=== PATIENT | male | born 1945 | race African-American/Black ===

== ENCOUNTER 2017-04-09 12:07 | Inpatient (IN) | payer MEDICARE ==
[~2017-04-09] VITALS: Ht 167.6 cm; Wt 63.5 kg
[~2017-04-09 12:07] MED LIST: AMLO10TA2 PO; ASPI-482 PO; CHLO25TA PO; DIPH50CA PO; FOLI1TAB16 PO; HYDR25CA75 PO; IBUP400T18 PO; LEVE750T8 PO; MAGN400T22 PO; MULT-245 PO; POTA20TA12 PO; SERT100T PO; THIA100T8 PO; TRAZ50TA15 PO; [UNRECOGNIZED DRUG - CODE] PO; [UNRECOGNIZED DRUG - CODE] PO
[2017-04-09] MEDS ORDERED: IV NORMAL SALINE 1,000ML 1,000 ML IV SCH (12:15)
[2017-04-09] MEDS ORDERED: ONDANSETRON PF 4 MG/2 ML VIAL. IV ONE (12:15)
[2017-04-09] MEDS ORDERED: 0.9 % SODIUM CHLORIDE 10 ML DISP.SYRIN. IV PRN (12:15)
--- NOTE | 2017-04-09 12:36 | RAD ---
Portable chest, 04/09/2017: History: Weakness Comparison is made to a study from 10/24/2013. There is mild unchanged elevation of the right hemidiaphragm. The heart size and pulmonary vascularity are normal. No pulmonary infiltrates are seen. There is no evidence of pleural fluid. IMPRESSION: No acute cardiopulmonary abnormality is detected.
--- NOTE | 2017-04-09 12:50 | EKG ---
[address] [address] Test Date: 2017-04-09 Test Time: 12:16:37 Pat Name: PARTH YOUNG Department: Room: Gender: M [employer] Supervisor: TAISHA : 1945 Requested By: MALI AGUILAR Order Number: [id number] Reading MD: Measurements Intervals [address] Rate: 95 P: -90 DE: 164 QRS: 10 QRSD: 80 T: 29 QT: 352 QTc: 446 Interpretive Statements SINUS RHYTHM T ABNORMALITY IN ANTERIOR LEADS ABNORMAL ECG RI6.01 Unconfirmed report No previous ECG available for comparison
[2017-04-09 12:58] LABS: BASO % 0 % (0-3); EOS % 1 % (0-3); HEMATOCRIT 38.1 % (39.0-53.0); HEMOGLOBIN 13.1 g/dL (13.0-17.5); LYMPH # 0.7 x10^3/uL (1.0-4.8); LYMPH % 13 % (24-48); MEAN CORPUSCULAR HEMOGLOBIN 35 pg (25-35); MEAN CORPUSCULAR HGB CONC 35 g/dL (31-37); MEAN CORPUSCULAR VOLUME 101 fL (79-100); MONO # 0.6 x10^3/uL (0.0-1.1); MONO % 12 % (0-9); NEUT # 3.9 x10^3uL (1.8-7.7); NEUT % 74 % (31-73); PLATELET COUNT 99 x10^3/uL (140-400); RED BLOOD COUNT 3.76 x10^6/uL (4.30-5.70); RED CELL DISTRIBUTION WIDTH 13.6 % (11.5-14.5); WHITE BLOOD COUNT 5.2 x10^3/uL (4.0-11.0)
[2017-04-09 13:17] LABS: ALBUMIN 3.8 g/dL (3.4-5.0); DIRECT BILIRUBIN 0.9 mg/dL (0.0-0.2); MAGNESIUM 0.9 mg/dL (1.8-2.4); TOTAL BILIRUBIN 1.6 mg/dL (0.2-1.0); TOTAL PROTEIN 8.2 g/dL (6.4-8.2)
[2017-04-09 13:47] LABS: CALCIUM 8.6 mg/dL (8.5-10.1); CREATININE 1.7 mg/dL (0.7-1.3)
[2017-04-09] MEDS ORDERED: LORazepam 2 MG/ML VIAL IV ONE (14:15)
[2017-04-09] MEDS ORDERED: ONDANSETRON PF 4 MG/2 ML VIAL. IV PRN (14:15)
[2017-04-09] MEDS ORDERED: POTASSIUM CHLORIDE 20 MEQ TABLET.ER. PO ONE (14:30)
--- NOTE | 2017-04-09 15:02 | PHYS DOC ---
Past History Past Medical History: Hypertension, Seizure Additional Past Medical Histor: alcohol abuse Past Surgical History: No Surgical History Smoking: Non-smoker Alcohol Use: Heavy Drug Use: None Adult General Chief Complaint Chief Complaint: NAUSEA/VOMITING HPI HPI 71-year-old male patient brought in by EMS because of vomiting and generalized weakness. Patient states he drinks gallons of vodka every day but for the last 4 days he was not able to drink alcohol because of frequent episodes of nausea and vomiting. Patient states he has had at least 10 episodes of vomiting every day and had epigastric pain during episodes of vomiting as a aching pain without radiation. Patient rated his pain for over 10 and denies any pain at arrival to ER. Patient denies fever and chills, focal neuro deficit, pain, shortness of breath, diarrhea and urinary symptom, history of the same problem. Patient states he was week that was not able to stand up and walk since this morning and his caregiver called 911. Review of Systems Review of Systems Constitutional: Denies fever or chills, reports generalized weakness [] Eyes: Denies change in visual acuity, redness, or eye pain [] HENT: Denies nasal congestion or sore throat [] Respiratory: Denies cough or shortness of breath [] Cardiovascular: No additional information not addressed in HPI [] GI: Denies bloody stools or diarrhea , reports nausea and vomiting and abdominal pain[] : Denies dysuria or hematuria [] Musculoskeletal: Denies back pain or joint pain [] Integument: Denies rash or skin lesions [] Neurologic: Denies headache, focal weakness or sensory changes [] Endocrine: Denies polyuria or polydipsia [] All other systems were reviewed and found to be within normal limits, except as documented in this note. Current Medications Current Medications Current Medications Medications (Trade) Dose Ordered Sig/Angel Start Time Stop Time Status Last Admin Dose Admin Ceftriaxone Sodium 1 gm/ Sodium Chloride 50 ml @ 100 mls/hr 1X ONCE 04/09/17 14:15 04/09/17 14:44 DC Lorazepam (Ativan) 0.5 mg 1X ONCE 04/09/17 14:15 04/09/17 14:16 DC Ondansetron HCl (Zofran) 4 mg PRN Q4HRS PRN 04/09/17 14:15 04/10/17 14:14 Potassium Chloride (Klor-Con) 40 meq 1X ONCE 04/09/17 14:30 04/09/17 14:31 DC Sodium Chloride 1,000 ml @ 150 mls/hr Q6H40M 04/09/17 14:15 04/10/17 14:14 Sodium Chloride (Normal Saline Flush) 10 ml QSHIFT PRN 04/09/17 12:15 Allergies Allergies Allergies Coded Allergies Type Severity Reaction Last Updated Verified lisinopril Allergy Mild 04/09/17 Yes Physical Exam Physical Exam Constitutional: Mild distress, non-toxic appearance no agitation or shaking. [] HENT: Normocephalic, atraumatic, bilateral external ears normal, oropharynx dry , no oral exudates, nose normal. [] Eyes: PERRLA, EOMI, conjunctiva normal, no discharge. [] Neck: Normal range of motion, no tenderness, supple, no stridor. [] Cardiovascular:Heart rate regular rhythm, no murmur [] Lungs & Thorax: Bilateral breath sounds clear to auscultation [] Abdomen: Bowel sounds normal, soft, no tenderness, no masses, no pulsatile masses. [] Skin: Warm, dry, no erythema, no rash. [] Back: No tenderness, no CVA tenderness. [] Extremities: No tenderness, no cyanosis, no clubbing, ROM intact, no edema. [] Neurologic: Alert and oriented X 3, normal motor function, normal sensory function, no focal deficits noted. [] Psychologic: Affect normal, judgement normal, mood normal. [] Current Patient Data Vital Signs Vital Signs Date Time Temp Pulse Resp B/P (MAP) Pulse Ox O2 Delivery O2 Flow Rate FiO2 04/09/17 13:19 70 18 126/75 (92) 99 Room Air 04/09/17 12:15 98.2 Lab Results Laboratory Tests Test 04/09/17 12:08 04/09/17 12:42 Sodium Level 138 mmol/L (136-145) Potassium Level 3.0 mmol/L (3.5-5.1) L Chloride Level 98 mmol/L (98-107) Carbon Dioxide Level 23 mmol/L (21-32) Anion Gap 17 (6-14) H Blood Urea Nitrogen 30 mg/dL (8-26) H Creatinine 1.7 mg/dL (0.7-1.3) H Estimated GFR (Cockcroft-Gault) 48.0 Glucose Level 171 mg/dL (70-99) H Calcium Level 8.6 mg/dL (8.5-10.1) White Blood Count 5.2 x10^3/uL (4.0-11.0) Red Blood Count 3.76 x10^6/uL (4.30-5.70) L Hemoglobin 13.1 g/dL (13.0-17.5) Hematocrit 38.1 % (39.0-53.0) L Mean Corpuscular Volume 101 fL (79-100) H Mean Corpuscular Hemoglobin 35 pg (25-35) Mean Corpuscular Hemoglobin Concent 35 g/dL (31-37) Red Cell Distribution Width 13.6 % (11.5-14.5) Platelet Count 99 x10^3/uL (140-400) L Neutrophils (%) (Auto) 74 % (31-73) H Lymphocytes (%) (Auto) 13 % (24-48) L Monocytes (%) (Auto) 12 % (0-9) H Eosinophils (%) (Auto) 1 % (0-3) Basophils (%) (Auto) 0 % (0-3) Neutrophils # (Auto) 3.9 x10^3uL (1.8-7.7) Lymphocytes # (Auto) 0.7 x10^3/uL (1.0-4.8) L Monocytes # (Auto) 0.6 x10^3/uL (0.0-1.1) Eosinophils # (Auto) 0.0 x10^3/uL (0.0-0.7) Basophils # (Auto) 0.0 x10^3/uL (0.0-0.2) Prothrombin Time 11.3 SEC (9.4-11.4) Prothrombin Time INR 1.1 (0.9-1.1) PTT 24 SEC (23-33) Lactic Acid Level 2.4 mmol/L (0.4-2.0) H Magnesium Level 0.9 mg/dL (1.8-2.4) L Total Bilirubin 1.6 mg/dL (0.2-1.0) H Direct Bilirubin 0.9 mg/dL (0.0-0.2) H Aspartate Amino Transferase (AST) 162 U/L (15-37) H Alanine Aminotransferase (ALT) 75 U/L (16-63) H Alkaline Phosphatase 92 U/L (46-116) Creatine Kinase 178 U/L (39-308) Troponin I Quantitative < 0.017 ng/mL (0-0.055) Total Protein 8.2 g/dL (6.4-8.2) Albumin 3.8 g/dL (3.4-5.0) Lipase 2595 U/L (73-393) H Ethyl Alcohol Level < 10 mg/dL (0-10) EKG EKG EKG interpreted by me. EKG at 1216 showed normal sinus rhythm at rate of 95, poor R-wave progress and T wave abnormality in anterior leads without acute ST and T wave abnormality[] Radiology/Procedures Radiology/Procedures [] Course & Med Decision Making Course & Med Decision Making Pertinent Labs and Imaging studies reviewed. (See chart for details) Evaluation of patient in ER showed 71-year-old male patient brought in by EMS because of nausea and vomiting and generalized weakness. Patient had history of alcohol abuse but did not drinking alcohol for the last 4 days but patient did not have sign of acute alcohol withdrawal at arrival to ER. Patient treated with IV fluid and Zofran as better. Patient denies any abdominal pain but he was in ER. Labs showed acute pancreatitis with elevation of liver function tests. Gallbladder ultrasound and UA is pending. Lactic acid was 2.4 and plan to repeat lactic acid in 4 hours. 1 dose of Rocephin was started. Dr. Lamb was informed at 1355 and agreed with plan of admission. Patient informed about plan of care. Dragon Disclaimer Dragon Disclaimer This electronic medical record was generated, in whole or in part, using a voice recognition dictation system. Departure Departure: Impression: Primary Impression: Acute pancreatitis Additional Impressions: Hypokalemia Dehydration Nausea and vomiting Alcohol withdrawal Cholelithiasis Elevated lactic acid level Renal insufficiency Disposition: 09 ADMITTED INPATIENT (At 1400) Admitting Physician: July Lamb Condition: IMPROVED Critical Care Time Critical care time was [60] minutes exclusive of procedures. Problem Qualifiers MALI AGUILAR MD Apr 09, 2017 15:02
--- NOTE | 2017-04-09 15:07 | RAD ---
Right upper quadrant ultrasound 04/09/2017 Indication: Right upper quadrant pain. Pancreatitis. Abdominal pain vomiting. Comparison study: None available. Discussion: Ultrasound evaluation of the right upper quadrant was performed. Static images are submitted to PACS. Pancreatic duct is top normal in diameter measuring 2 mm. No gross sonographic abnormalities of the pancreas are detected. Visualized portions of aorta and IVC are grossly unremarkable. A combination of sludge and small stones are noted within dependent portion of the gallbladder. The gallbladder wall is non-thickened. Portal venous flow is in the normal direction. The liver is diffusely hyperechoic suggesting fatty infiltration. The liver is top normal in size measuring 17.4 cm longitudinally. No intrahepatic biliary dilatation is seen. A small 1.3 cm cyst is noted in the right liver. The common bile duct is nondilated at 4 mm. The right kidney is normal in appearance measuring 11 cm in length. Impression: 1. Cholelithiasis and sludge in the dependent portion of the gallbladder. 2. Hepatic steatosis. Small hepatic cyst noted.
[2017-04-09] MEDS ORDERED: IV NORMAL SALINE 1,000ML 1,000 ML IV ONE (15:15)
[2017-04-09 15:34] VITALS: BP 137/89
[2017-04-09 15:46] LABS: AMPHETAMINE/METHAMPHETAMINE NEG (NEG); BARBITURATES NEG (NEG); BENZODIAZEPINES NEG (NEG); CANNABINOIDS NEG (NEG); COCAINE NEG (NEG); METHADONE NEG (NEG); OPIATES NEG (NEG); PHENCYCLIDINE NEG (NEG)
[2017-04-09 16:02] LABS: BILIRUBIN,URINE NEG (NEG); CLARITY,URINE HAZY; COLOR,URINE AMBER; GLUCOSE,URINE NEG (NEG)
[2017-04-09 16:04] LABS: BACTERIA,URINE 0 /HPF (0-FEW); HYALINE CASTS, URINE MANY /HPF; SQUAMOUS EPITHELIAL CELL,UR FEW /LPF
[2017-04-09] MEDS ORDERED: CYAN100031 PO (16:30)
[2017-04-09] MEDS ORDERED: CARB15DR3 EACHEYE (16:30)
[2017-04-09] MEDS ORDERED: ASCO500T3 PO (16:30)
[2017-04-09] MEDS ORDERED: LEVE500T6 PO (16:30)
[2017-04-09] MEDS ORDERED: CARV12.52 PO (16:30)
[2017-04-09] MEDS ORDERED: TERA2CAP3 PO (16:30)
[2017-04-09] MEDS: IV NORMAL SALINE 1,000ML 1,000 ML IV SCH ×2 (16:55→20:55)
[2017-04-09] MEDS ORDERED: MAGNESIUM SULFATE 2GM 50 ML IV ONE (17:00)
[2017-04-09] MEDS ORDERED: cefTRIAXone IV Push 1 GM VIAL. IVP ONE (17:00)
[2017-04-09 18:22] VITALS: BP 99/66
[2017-04-09] MEDS ORDERED: LORazepam 2 MG/ML VIAL IV PRN (18:30)
--- NOTE | 2017-04-09 18:57 | HP ---
ADMIT DATE: 04/09/2017 HISTORY OF PRESENT ILLNESS: The patient is a 71-year-old -Monegas[place] patient, a who came to the Emergency Room complaining of recurrent bouts of nausea, vomiting, and generalized weakness. He stated that he drinks about a gallon of vodka every day. For the last 4 days, he was not able to drink alcohol because of frequent episodes of nausea and vomiting. He stated he has at least 10 episodes of vomiting every day, had epigastric pain during the episodes of vomiting as an aching pain without radiation. He rated his pain as 10/10. He denied any fever, chills, or rigors. Denied any shortness of breath. Denied any diarrhea. He was evaluated in the Emergency Room and was found to have deranged liver enzyme and marked elevated serum lipase as well as severe hypokalemia and hypomagnesemia and was admitted for pain management to replenish his potassium and magnesium and to start him on alcohol withdrawal protocol. PAST MEDICAL HISTORY: Significant for hypertension, hepatitis C, vitamin B12 deficiency, seizure disorder. PAST SURGICAL HISTORY: Unremarkable. ALLERGIES: He is allergic to LISINOPRIL. MEDICATIONS: He is currently on following medications: He is on amlodipine 10 mg once a day, ascorbic acid 500 mg once a day, carboxymethylcellulose for Refresh Optive eyedrops 1 drop to both eyes 4 times a day, carvedilol 12.5 mg twice a day, cyanocobalamin 1000 mcg tablet once a day, folic acid 1 mg once a day, levetiracetam 500 mg twice a day, multivitamin 1 tablet once a day, sertraline 100 mg, he takes half a tablet once a day, terazosin 1 mg at bedtime, and thiamine 100 mg daily. FAMILY HISTORY: He has 1 sister and 1 brother who live in [place] and do not keep in touch with him. His father at the age of 62 because of alcoholism. He does not know the cause of of his mother. SOCIAL HISTORY: He is from his over 22 years. He has 2 sons and 1 daughter. He never smoked, but he has been a heavy drinker all of his life. He worked for [employer] and [employer] and has been retired the last few years. He lives in an apartment in the [facility]. REVIEW OF SYSTEMS: The patient denied any blurring of vision, cataract, glaucoma or macular degeneration. Denied any earache, tinnitus or sensorineural deafness. Denied any nosebleeds, stuffy nose or postnasal drip. Denied any sore throat, sore tongue, toothache, hoarseness of voice or difficulty swallowing. Did complain of recurrent bouts of nausea and vomiting, but denied any diarrhea or constipation. Denied any hematemesis, melena or hematochezia. Denied any dysuria, frequency or hematuria. Denied any chest pain, shortness of breath, orthopnea, or paroxysmal nocturnal dyspnea. Denied any cough, phlegm, or hemoptysis. Denied any chills, rigors, or fever. PHYSICAL EXAMINATION: GENERAL: When I examined him, he looked well and was clearly in no apparent respiratory distress, pale, but no jaundice, cyanosis, or thyromegaly. No jugular venous distension. No limb edema. VITAL SIGNS: His heart rate was 76, blood pressure was 137/89, temperature was 98.5, respiratory rate 20, and oxygen saturation was 97%. HEAD, EYES, EARS, NOSE AND THROAT: Showed normocephalic, atraumatic. NECK: Supple. HEART: Showed normal first and second heart sounds with no gallop, rub or murmur. CHEST: Clear to auscultation. No crepitation or rhonchi. ABDOMEN: Distended with some tenderness in the epigastric area. Denied any guarding or rigidity. No organomegaly. Hernial orifices intact. Bowel sounds normal. NEUROLOGIC: He was awake, alert, responding appropriately. Cranial nerves intact. EXTREMITIES: He moves extremities without difficulty, ambulates without assistance or assistive devices. LABORATORY DATA: His lab work showed a white cell count of 5200, hemoglobin 13, hematocrit 38, MCV 101, and platelet count of 99,000. His prothrombin time was 11.3, INR 1.1, aPTT was 24. His chemistry showed a serum sodium of 138, potassium 3, chloride 98, bicarbonate 23, anion gap of 17, BUN 30, creatinine 1.7, estimated GFR was 48 mL per minute. His glucose 171, calcium was 8.6, lactic acid was 2.4, magnesium was very low at 0.9. His total bilirubin was 1.6. His alkaline phosphatase was normal, however, AST and ALT were elevated. His CK was 178. Total protein was 8.2, albumin was 3.8 and serum lipase was high at 2595. ASSESSMENT AND PLAN: In summary, this is a 71-year-old -Monegas[place] male patient, who was admitted with recurrent bouts of nausea, vomiting and epigastric pain, was diagnosed with acute pancreatitis with markedly elevated serum lipase of 2595. He also has marked severe hypokalemia, hypomagnesemia versus acute on chronic kidney injury and hyperglycemia. I will continue with IV fluid, pain medication and banana bag. We will repeat all his lab works tomorrow and decide the further management accordingly. He has had CT scan and abdominal ultrasound, which showed that he has cholelithiasis and sludge in the dependent portion of the gallbladder and hepatic steatosis, but there is no evidence of acute cholecystitis. JIM CADE MD DR: UYEN/farrah JOB#: [id number] / [id number]
[2017-04-09] MEDS: levETIRAcetam 500 MG TABLET PO SCH (20:30)
[2017-04-09] MEDS ORDERED: MVI, ADULT NO.4 WITH VIT K 10 ML, THIAMINE 100 MG, FOLIC ACID 1 MG in IV NORMAL SALINE ... IV SCH ×4 (21:00)
[2017-04-09 23:00] VITALS: BP 143/79
[2017-04-10 03:00] VITALS: BP 132/72
[2017-04-10] MEDS: IV NORMAL SALINE 1,000ML 1,000 ML IV SCH ×2 (03:35→10:15)
[2017-04-10 07:00] VITALS: BP 118/79
[2017-04-10 07:07] LABS: ALBUMIN 3.1 g/dL (3.4-5.0); ALBUMIN/GLOBULIN RATIO 0.8 (1.0-1.7); CALCIUM 7.7 mg/dL (8.5-10.1); GFR 88.6; TOTAL BILIRUBIN 1.1 mg/dL (0.2-1.0)
[2017-04-10 07:12] LABS: HEMOGLOBIN 11.7 g/dL (13.0-17.5); RED BLOOD COUNT 3.34 x10^6/uL (4.30-5.70); RED CELL DISTRIBUTION WIDTH 13.7 % (11.5-14.5); WHITE BLOOD COUNT 5.1 x10^3/uL (4.0-11.0)
[2017-04-10 07:16] LABS: POTASSIUM 2.9 mmol/L (3.5-5.1)
[2017-04-10] MEDS: POTASSIUM CHLORIDE 10MEQ 100 ML IV SCH ×4 (07:38→10:30)
[2017-04-10] MEDS: levETIRAcetam 500 MG TABLET PO SCH ×2 (08:47→20:24)
[2017-04-10 11:46] VITALS: BP 148/93
[2017-04-10] MEDS: chlordiazePOXIDE HCL 25 MG CAPSULE PO PRN (12:56)
[2017-04-10] MEDS ORDERED: chlordiazePOXIDE HCL 25 MG CAPSULE PO PRN (13:00)
[2017-04-10] MEDS ORDERED: cloNIDine HCL 0.1 MG TABLET PO PRN (13:00)
[2017-04-10] MEDS ORDERED: MAGNESIUM SULFATE 2GM 50 ML IV ONE (15:30)
[2017-04-10] MEDS: POLYVINYL ALCOHOL 1.4% OPHTH SOLUTION 15ML BOTTLE. OU SCH ×2 (17:00→20:25)
[2017-04-10 18:41] VITALS: BP 141/80
[2017-04-10 19:21] VITALS: BP 110/67
[2017-04-10] MEDS: POTASSIUM CHLORIDE 20 MEQ TABLET.ER. PO SCH (20:24)
[2017-04-10] MEDS: CARVEDILOL 12.5 MG TABLET PO SCH (20:24)
[2017-04-10] MEDS: MAGNESIUM OXIDE 400 MG TABLET PO SCH (20:25)
[2017-04-10] MEDS: TERAZOSIN 1 MG CAPSULE. PO SCH (20:29)
[2017-04-10 23:13] VITALS: BP 130/78
[2017-04-11 05:08] VITALS: BP 142/88
[2017-04-11 06:30] LABS: HEMATOCRIT 32.8 % (39.0-53.0); HEMOGLOBIN 11.3 g/dL (13.0-17.5); RED BLOOD COUNT 3.22 x10^6/uL (4.30-5.70); RED CELL DISTRIBUTION WIDTH 13.9 % (11.5-14.5); WHITE BLOOD COUNT 4.3 x10^3/uL (4.0-11.0)
[2017-04-11 06:35] LABS: ALBUMIN 2.9 g/dL (3.4-5.0); ALBUMIN/GLOBULIN RATIO 0.8 (1.0-1.7); CALCIUM 7.7 mg/dL (8.5-10.1); CREATININE 0.7 mg/dL (0.7-1.3); GFR 133.8; MAGNESIUM 1.5 mg/dL (1.8-2.4); POTASSIUM 3.1 mmol/L (3.5-5.1); TOTAL PROTEIN 6.7 g/dL (6.4-8.2)
[2017-04-11] MEDS: ASCORBIC ACID 500 MG TABLET PO SCH (08:28)
[2017-04-11] MEDS: POLYVINYL ALCOHOL 1.4% OPHTH SOLUTION 15ML BOTTLE. OU SCH ×4 (08:28→21:13)
[2017-04-11] MEDS: amLODIPine BESYLATE 10 MG TABLET PO SCH (08:28)
[2017-04-11] MEDS: CYANOCOBALAMIN (VITAMIN B-12) 1,000 MCG TABLET. PO SCH (08:28)
[2017-04-11] MEDS: THIAMINE 100 MG TABLET. PO SCH (08:29)
[2017-04-11] MEDS: levETIRAcetam 500 MG TABLET PO SCH ×2 (08:29→21:14)
[2017-04-11] MEDS: MULTIVITAMIN with MINERAL TABLET. PO SCH (08:29)
[2017-04-11] MEDS: SERTRALINE 50 MG TABLET. PO SCH (08:29)
[2017-04-11] MEDS: POTASSIUM CHLORIDE 20 MEQ TABLET.ER. PO SCH ×3 (08:29→21:14)
[2017-04-11] MEDS: MAGNESIUM OXIDE 400 MG TABLET PO SCH ×3 (08:29→21:13)
[2017-04-11] MEDS: CARVEDILOL 12.5 MG TABLET PO SCH ×2 (08:29→21:13)
[2017-04-11] MEDS: FOLIC ACID 1 MG TABLET PO SCH (08:29)
[2017-04-11] MEDS ORDERED: LOPERAMIDE 2 MG CAPSULE PO PRN (09:00)
--- NOTE | 2017-04-11 09:37 | PN ---
DATE: 04/10/2017 SUBJECTIVE: The patient is resting, slightly propped up in bed, in no apparent distress. He has had no further episodes of nausea or vomiting. Denied any abdominal pain. Nursing staff concerned about his blood pressure is high and his potassium was low also this morning at 2.9 for which he was given potassium intravenously and potassium came up to 3.5. His serum lipase came down from . PHYSICAL EXAMINATION: GENERAL: When I examined him this afternoon, he looked well and was clearly in no apparent respiratory distress, pale, but no jaundice, cyanosis, or thyromegaly. No jugular venous distension. No limb edema. VITAL SIGNS: His heart rate was 64, blood pressure was 132/72, temperature was 97.4, respiratory rate 20, and oxygen saturation was 94%. HEAD, EYES, EARS, NOSE AND THROAT: Showed normocephalic, atraumatic. NECK: Supple. HEART: Showed normal first and second heart sounds with no gallop, rub or murmur. CHEST: Clear to auscultation. No crepitation or rhonchi. ABDOMEN: Distended, soft, nontender. No guarding or rigidity. No organomegaly. All hernial orifice intact. Bowel sounds normal. NEUROLOGIC: He was awake, alert, responding appropriately. All cranial nerves intact. EXTREMITIES: He moves extremities without difficulty, ambulates without assistance or assistive devices. His intake was 2750. No output was recorded. LABORATORY DATA: This morning showed a serum sodium 142, potassium 3.5, chloride 106, bicarbonate 22, anion gap of 14, BUN of 18, creatinine 1, estimated GFR was 88, glucose 124, calcium was 7.7, magnesium continued to be low at 1.1. His total bilirubin is 1.1, alkaline phosphatase normal. Total protein 7, albumin 3.1 and lipase was 930. His white cell count was 5100, hemoglobin 11.7, hematocrit 34, MCV 102 and platelet count of 70,000. ASSESSMENT: 1. Acute pancreatitis with markedly elevated serum lipase of 2595. 2. Severe hypokalemia with potassium of 2.9, resolved. Severe hypomagnesemia with serum magnesium 0.9 mg/dL, slightly better, although still below the lower limit of normal. 3. Acute kidney injury. His creatinine came down from 1.7 to 1 and deranged liver enzymes slightly improved. PLAN: Resume all his medication before. Magnesium sulfate 2 grams IV and started magnesium oxide 400 mg 3 times a day. Start clear liquid diet PT/OT. JIM CADE MD DR: UYEN/farrah JOB#: [id number] / [id number]
[2017-04-11 11:11] VITALS: BP 150/87
[2017-04-11] MEDS: chlordiazePOXIDE HCL 25 MG CAPSULE PO PRN (12:52)
[2017-04-11] MEDS ORDERED: MAGNESIUM SULFATE 2GM 50 ML IV ONE ×2 (15:00→16:30)
[2017-04-11] MEDS: POTASSIUM CL 40MEQ IN 0.9%NACL 1,000 ML IV SCH (15:32)
[2017-04-11 16:39] VITALS: BP 125/82
[2017-04-11 19:17] VITALS: BP 123/81
[2017-04-11] MEDS: TERAZOSIN 1 MG CAPSULE. PO SCH (21:13)
[2017-04-11 23:07] VITALS: BP 114/73
[2017-04-12] MEDS: POTASSIUM CL 40MEQ IN 0.9%NACL 1,000 ML IV SCH ×2 (05:57→17:40)
[2017-04-12 06:12] VITALS: BP 136/84
[2017-04-12 08:02] LABS: ALBUMIN 3.1 g/dL (3.4-5.0); ALBUMIN/GLOBULIN RATIO 0.8 (1.0-1.7); CALCIUM 8.5 mg/dL (8.5-10.1); CREATININE 0.6 mg/dL (0.7-1.3); GFR 159.8; MAGNESIUM 1.7 mg/dL (1.8-2.4); POTASSIUM 4.3 mmol/L (3.5-5.1); TOTAL BILIRUBIN 0.8 mg/dL (0.2-1.0)
[2017-04-12] MEDS: POLYVINYL ALCOHOL 1.4% OPHTH SOLUTION 15ML BOTTLE. OU SCH ×3 (09:00→17:00)
[2017-04-12] MEDS: POTASSIUM CHLORIDE 20 MEQ TABLET.ER. PO SCH ×2 (09:17→14:48)
[2017-04-12] MEDS: THIAMINE 100 MG TABLET. PO SCH (09:17)
[2017-04-12] MEDS: CYANOCOBALAMIN (VITAMIN B-12) 1,000 MCG TABLET. PO SCH (09:18)
[2017-04-12] MEDS: CARVEDILOL 12.5 MG TABLET PO SCH (09:18)
[2017-04-12] MEDS: ASCORBIC ACID 500 MG TABLET PO SCH (09:18)
[2017-04-12] MEDS: MAGNESIUM OXIDE 400 MG TABLET PO SCH ×2 (09:18→14:47)
[2017-04-12] MEDS: levETIRAcetam 500 MG TABLET PO SCH (09:18)
[2017-04-12] MEDS: SERTRALINE 50 MG TABLET. PO SCH (09:18)
[2017-04-12] MEDS: amLODIPine BESYLATE 10 MG TABLET PO SCH (09:18)
[2017-04-12] MEDS: MULTIVITAMIN with MINERAL TABLET. PO SCH (09:18)
[2017-04-12] MEDS: FOLIC ACID 1 MG TABLET PO SCH (09:18)
--- NOTE | 2017-04-12 10:09 | PN ---
DATE: 04/11/2017 SUBJECTIVE: Resting, propped up in bed, in no apparent distress. He continued to be restless, agitated, like to go home; however, he continued to have recurrent bouts of loose bowel movement. His lab work showed that he continues to be hypokalemic despite multiple attempts to replenish potassium. So far, his urine culture is negative as well as his blood culture. PHYSICAL EXAMINATION: GENERAL: When I examined him, he looked well and was clearly in no apparent respiratory distress, pale. No jaundice, cyanosis, or thyromegaly. No jugular venous distention. No limb edema. VITAL SIGNS: Her heart rate was 84, blood pressure 150/87, temperature was 98.5, respiratory rate 16, and oxygen saturation was 95%. HEAD, EYES, EARS, NOSE AND THROAT: Normocephalic, atraumatic. NECK: Supple. HEART: Showed normal first and second heart sounds with no gallop, rub, or murmur. CHEST: Clear to auscultation. No crepitation or rhonchi. ABDOMEN: Distended, soft, and nontender. No guarding or rigidity. No organomegaly. Hernial orifice is intact. Bowel sounds normal. NEUROLOGIC: He was awake, alert, responding appropriately. Cranial nerves are intact. He moves extremities without difficulty, ambulates without assistance or assistive devices. His intake was 2750. No output was recorded. LABORATORY DATA: As of this morning, his serum sodium was 140, potassium 3.1, chloride 106, bicarbonate 25, anion gap of 9, BUN 9, creatinine 0.7, estimated GFR was 133 mL per minute. His glucose was 98, calcium was 7.7, magnesium was 1.5. Total bilirubin 1. ALT elevated. Alkaline phosphatase is normal. Total protein 6.7, albumin was 2.9. Serum lipase was 930. ASSESSMENT: 1. Acute alcohol-induced pancreatitis, resolving. 2. Hypokalemia, resolved, although not completely normalized. 3. Severe hypomagnesemia. Magnesium is 1.5. 4. Acute kidney injury. His creatinine came down from 1.7-1. The patient has chronic alcoholic hepatitis. PLAN: Plan is to change IV fluid to normal saline with 40 mEq of potassium chloride at 2 grams of magnesium sulfate. Continue with mag citrate, mag oxide, and hopefully we can discharge him back home tomorrow. JIM CADE MD DR: Caroline JOB#: [id number] / [id number]
[2017-04-12 11:08] VITALS: BP 142/81
[2017-04-12] MEDS ORDERED: ONDANSETRON ODT 4 MG TAB.RAPDIS PO PRN (12:15)
[2017-04-12 15:21] VITALS: BP 130/82
--- NOTE | 2017-04-13 01:10 | PN ---
DATE: 04/12/2017 SUBJECTIVE: The patient is resting, slightly propped up in bed, in no apparent distress. He continued to have some nausea and vomiting. Yesterday was almost left against medical advice and today, he does not want to go home, claiming that he wants to go home tomorrow to see his home health care social worker to arrange for him to go to the rehabilitation center in [place]. OBJECTIVE: GENERAL: On examining him today, he looked well and was clearly in no apparent respiratory distress, slightly pale, no jaundice, cyanosis, or thyromegaly. No jugular venous distension. No limb edema. VITAL SIGNS: Her heart rate was 80, blood pressure 142/81, temperature was 98.5, respiratory rate was 20, and oxygen saturation was 98%. HEAD, EYES, EARS, NOSE AND THROAT: Normocephalic, atraumatic. NECK: Supple. HEART: Showed normal first and second heart sounds. No gallop, rub or murmur. CHEST: Clear to auscultation. No crepitation or rhonchi. ABDOMEN: Distended, soft, and nontender. No guarding or rigidity. No organomegaly. Hernial orifice intact. Bowel sounds normal. NEUROLOGIC: He is awake, alert, responding appropriately. Cranial nerves intact. He moves extremities without difficulty. His intake over the last 24 hours was 2250, output was 830. LABORATORY DATA: As of this morning showed a serum sodium 139, potassium 4.3, chloride 107, bicarbonate 24, anion gap of 8, BUN 5, creatinine 0.6, estimated GFR was 160 mL per minute. His glucose was 97, calcium was 8.5, and magnesium was 1.7. Total bilirubin and alkaline phosphatase normal. AST, ALT are still elevated, although trending down. His total protein was 7, albumin 3.1. His lipase came down from 2600 to 741. The patient continued to have occasional episodes of nausea, but has been be able to eat and drink. Denied any abdominal pain. His hypokalemia has largely been replenished. In fact, his potassium has risen from 2.9 to 4.3. His magnesium has improved from 0.9 to 1.7, and serum creatinine came down from 1.7 to 0.6. ASSESSMENT: 1. Acute alcohol-induced pancreatitis, resolving. 2. Hyperkalemia, resolved. His most recent serum potassium was 4.3. 3. Severe hypomagnesemia with serum magnesium has risen from 0.9 to 1.7. 4. Acute kidney injury with serum creatinine that has came down from 1.7 to 0.6. 5. Chronic alcoholic hepatitis. PLAN: To discontinue intravenous fluid, continue pain medication, and antiemetic. We will discharge him home tomorrow. JIM CADE MD DR: UYEN/farrah JOB#: [id number] / [id number]
== END 2017-04-12 18:00 | disposition left against medical advice (07) | DRG 682 ==
LOC: ER 12:07 → ICU 14:09 → 1 SOUTH 04-11 15:15
PROVIDERS: ADMIT Internal Medicine; ATTEND Internal Medicine
DX: N17.9 Acute kidney failure, unspecified (principal); K85.20 Alcohol induced acute pancreatitis without necrosis or infection; E83.42 Hypomagnesemia; G40.909 Epilepsy, unspecified, not intractable, without status epilepticus; E86.0 Dehydration; F10.239 Alcohol dependence with withdrawal, unspecified; B19.20 Unspecified viral hepatitis C without hepatic coma; E87.6 Hypokalemia; I10 Essential (primary) hypertension; K70.10 Alcoholic hepatitis without ascites; Z53.21 Procedure and treatment not carried out due to patient leaving prior to being seen by health care provider; K76.0 Fatty (change of) liver, not elsewhere classified; K80.20 Calculus of gallbladder without cholecystitis without obstruction; Z88.8 Allergy status to other drugs, medicaments and biological substances
CPT/HCPCS: 36415; 71045; 76705; 80048; 80053; 80076; 80307; 81001; 82550; 83605; 83690; 83735; 84132; 84484; 85025; 85027; 85610; 85730; 87040; 87086; 87641; 93005; 96361; 96374; G0480; J0696; J2060; J2405; J3475; J3480; Q0162; 99291-25; G0479; J7030